=== PATIENT | male | born 1940 | race Caucasian/White ===

== ENCOUNTER 2019-07-07 08:18 | Inpatient (IN) ==
[2019-07-01 11:25] LABS: URINE SOURCE CLEAN CATCH
[2019-07-01 11:44] LABS: BASO# 0.03 X1000 (0.0-0.2); BASO% 0.4 % (0.0-0.8); EOS# 0.14 X1000 (0.0-0.7); EOS% 1.9 % (0.0-10.0); HEMATOCRIT 46.9 % (42.0-52.0); HEMOGLOBIN 15.6 g/dL (14.0-18.0); IMM GRAN# 0.04 X1000 (0.0-0.04); IMM GRAN% 0.5 % (0.0-0.5); LYMPH# 1.25 X1000 (1.2-3.4); LYMPH% 17.1 % (20.5-51.1); MCH 31.7 PG (27-31); MCHC 33.3 g/dL (33-37); MCV 95.3 FL (81-99); MONO# 0.79 X1000 (0.11-0.59); MONO% 10.8 % (1.7-9.3); MPV 10.1 FL (7.4-10.4); NEUT# 5.07 X1000 (1.4-6.5); NEUT% 69.3 % (42.2-75.2); PLT 204 X1000 (130-400); RBC 4.92 XMIL (4.7-6.1); RDW 13.1 % (11.5-14.5); WBC 7.32 X1000 (4.8-10.8)
[2019-07-01 11:48] LABS: BILIRUBIN URINE NEGATIVE (NEGATIVE); BLOOD URINE NEGATIVE (NEGATIVE); COLOR YELLOW; GLUCOSE URINE NEGATIVE (NEGATIVE); INR 0.96; KETONE URINE NEGATIVE (NEGATIVE); LEUKOCYTES URINE NEGATIVE (NEGATIVE); NITRITE URINE NEGATIVE (NEGATIVE); PH URINE 5.5; PROTEIN URINE TRACE mg/dL (NEGATIVE); PROTIME 12.9 Seconds (11.0-16.0); SP GRAVITY URINE 1.018; TURBIDITY URINE CLEAR (CLEAR); UROBILINOGEN URINE NORMAL (NORMAL)
[2019-07-01 11:49] LABS: PTT 33.6 Seconds (22.3-41.8); UR EPITHELIAL CELLS <10 /HPF (<10); URINE BACTERIA NEGATIVE /HPF; URINE RBC <10 /HPF (<10); URINE WBC <10 /HPF (<10)
[2019-07-01 12:47] LABS: ALBUMIN 4.3 g/dL (3.5-5.0); CALCIUM 9.6 mg/dL (8.8-10.2); CREATININE 1.5 mg/dL (0.7-1.2); POTASSIUM 4.5 mmol/L (3.5-5.1)
[2019-07-01 13:19] LABS: HEMOGLOBIN A1C 5.4 % (4.8-6.0)
[~2019-07-07 08:18] MED LIST: DIPRIVAN 1% ONE
[2019-07-07] MEDS ORDERED: DURAMORPH ONE (08:25)
[2019-07-07] MEDS ORDERED: TORADOL ONE (08:25)
[2019-07-07] MEDS ORDERED: CYKLOKAPRON 1,000 MG/NS 1,000 MG/100 ML IVPB ONE (08:25)
[2019-07-07] MEDS ORDERED: MARCAINE 0.25% PF/EPI 1:200,000 ONE (08:25)
[2019-07-07] MEDS ORDERED: SODIUM CHLORIDE 0.9% ONE (08:25)
[2019-07-07] MEDS ORDERED: VANCOMYCIN ONE (08:25)
[2019-07-07] MEDS ORDERED: NEOSPORIN G.U. IRRIGANT ONE (08:25)
[2019-07-07] MEDS ORDERED: EXPAREL 1.3% ONE (08:25)
[2019-07-07] MEDS ORDERED: COLACE ONE (08:30)
[2019-07-07] MEDS ORDERED: REGLAN ONE (08:30)
[2019-07-07] MEDS ORDERED: PEPCID ONE (08:30)
[2019-07-07] MEDS ORDERED: LYRICA ONE (08:30)
[2019-07-07] MEDS ORDERED: LR 1,000 ML ONE (08:31)
[2019-07-07] MEDS ORDERED: CELEBREX ONE (08:31)
[2019-07-07] MEDS ORDERED: KEFZOL 2 GM/D5W 2 GM/50 ML IVPB ONE (08:31)
[2019-07-07] MEDS ORDERED: DIPRIVAN 1% ONE ×2 (08:55→09:48)
[2019-07-07] MEDS ORDERED: DECADRON ONE (09:35)
[2019-07-07] MEDS ORDERED: OFIRMEV 1000 MG/ISOTONIC SOLN 1,000 MG/100 ML BOTTLE ONE (09:35)
[2019-07-07] MEDS ORDERED: XYLOCAINE-MPF 2% ONE (09:35)
[2019-07-07] MEDS ORDERED: FENTANYL ONE (09:35)
[2019-07-07 09:58] LABS: URINE SOURCE CATH
[2019-07-07] MEDS ORDERED: EPHEDRINE ONE (10:02)
[2019-07-07 10:05] LABS: BILIRUBIN URINE NEGATIVE (NEGATIVE); BLOOD URINE NEGATIVE (NEGATIVE); COLOR YELLOW; GLUCOSE URINE NEGATIVE (NEGATIVE); KETONE URINE NEGATIVE (NEGATIVE); LEUKOCYTES URINE NEGATIVE (NEGATIVE); NITRITE URINE NEGATIVE (NEGATIVE); PROTEIN URINE TRACE mg/dL (NEGATIVE); SP GRAVITY URINE 1.017; TURBIDITY URINE CLEAR (CLEAR); UR EPITHELIAL CELLS <10 /HPF (<10); URINE BACTERIA NEGATIVE /HPF; URINE RBC <10 /HPF (<10); URINE WBC <10 /HPF (<10); UROBILINOGEN URINE NORMAL (NORMAL)
[2019-07-07] MEDS ORDERED: NS 1,000 ML ONE (11:37)
[2019-07-07] MEDS: OXY IR ONE ×2 (11:45→12:11)
--- NOTE | 2019-07-07 11:57 | Diag Imaging Result Doc PS360 ---
EXAM: KNEE 1-2 VIEWS-LEFT HISTORY: post op total knee TECHNIQUE: Two views COMPARISON: None. FINDINGS: There has been orthopedic replacement of the hip. There are anterior skin craig and there is a superior surgical drain. No fracture. No dislocation. Severe atherosclerosis. There are stents in the superficial femoral popliteal arteries. IMPRESSION: Good alignment to the femoral and tibial components following orthopedic replacement of the knee. Electronically signed by Ted Kenney 07/07/2019 11:55 AM
[2019-07-07] MEDS ORDERED: MORPHINE IV PRN ×3 (12:00)
[2019-07-07] MEDS ORDERED: ZOFRAN IV PRN (12:00)
[2019-07-07] MEDS ORDERED: OXY IR PO PRN (12:00)
[2019-07-07] MEDS ORDERED: ZOFRAN ODT PO PRN (12:00)
[2019-07-07] MEDS: NS 1,000 ML IV SCH ×2 (12:00→21:51)
--- NOTE | 2019-07-07 13:45 | OPERATIVE NOTE ---
PROCEDURE DATE: 07/07/2019 PREOPERATIVE DIAGNOSIS: Degenerative joint disease, left knee. POSTOPERATIVE DIAGNOSIS: Degenerative joint disease, left knee. PROCEDURE: Left total knee replacement. SURGEON: Babita Fall MD MEAT LUGGER: ISAIAS Pollard ANESTHESIA: Spinal. COMPLICATIONS: None. Note Mr. Wayne was necessary for proper retraction and manipulation during the case. INDICATIONS: 79-year-old male presents for left total knee replacement. Risks, benefits, and no guarantees were discussed and the patient is willing to proceed. PROCEDURE IN DETAIL: The patient was taken to the operating room and satisfactory spinal anesthesia was obtained. The left knee was prepped and draped in the usual sterile fashion. A time-out was taken to confirm operative site, procedure, and patient. The leg was wrapped with an Esmarch and tourniquet inflated to 300 mmHg. A midline incision was made down the front of the knee followed by a quad-tendon sparing arthrotomy. The patella was everted and resurfaced with freehand technique and subluxed laterally. Intramedullary hole was made in the distal femur and the distal femoral cutting block secured in 5 degrees of valgus. Then, 10 mm was taken off the distal femur. The femur was sized to a size 8 DePuy Attune implant. The 4 in 1 block was secured the anterior posterior and chamfer cuts sequentially made. A notch was created for posterior stabilized design using the provided notch guide. Any remaining osteophytes were debrided from the femur. The knee was flexed and a PCL retractor placed behind the tibia to protect the neurovascular bundle. The tibial cutting block was secured and the tibial resection made. Flexion and extension gaps were equal with a 5 mm spacer. The tibia was sized to a size 8 tibial tray. Trial reduction was performed with a 5 mm spacer block with good range of motion and stability. The patella was sized to a 41 medialized dome patella. Drill holes were placed for the patellar implant and femoral implant the trial components removed. The bony surfaces were thoroughly irrigated with pulsatile lavage. Cement with a gram of vancomycin was utilized to cement a size 8 DePuy Attune rotating platform tibial tray a size 8 posterior stabilized left femoral component and a 41 medialized dome patella. While the cement cured, the excess cement was removed with a Horton elevator. The joint capsule was injected with Exparel and a Hemovac drain placed. After curing the cement, a 5 mm size 8 posterior stabilized rotating platform polyethylene bearing was inserted in the tibial tray and the knee reduced. Final range of motion was 0 to 130 degrees with midline patellar tracking. The arthrotomy was copiously irrigated with irrigant and closed over the drain with #1 Vicryl in the arthrotomy, 2-0 Vicryl in the subcutaneous and Prineo skin closure. Sterile dressings completed the closure and the patient was recovered from anesthesia and transferred to the recovery room in stable condition. No intraoperative complications were noted. Instrument count and sponge count was correct at the time of closure. cc: Jose Fall MD
[2019-07-07] MEDS: TYLENOL PO SCH ×3 (14:47→21:51)
[2019-07-07] MEDS: ULTRAM PO SCH ×3 (14:48→21:52)
--- NOTE | 2019-07-07 16:22 | ORTHOPAEDICS PROGRESS NOTE ---
DATE: 07/07/2019 SUBJECTIVE DATA: Mr. Tsai was seen postop day 0 of his left total knee arthroplasty. He reports he is doing well at this time. He states he has been really hungry and already ate two plates of food. He states his pain level is a 3/10. He denies nausea or vomiting. OBJECTIVE DATA: He has good sensation to the left lower extremity. Good pedal pulses. His bandages are clean and dry. He is able to wiggle his toes and hold his leg up without difficulty. Vital Signs have been stable. ASSESSMENT: Degenerative joint disease left knee with left total knee arthroplasty. PLAN: We plan on keeping Ms. Tsai overnight in the hospital. We will keep him a couple of more days, and get him set up for rehab placement. Dictated by ISAIAS Pollard for Jose Fall MD cc: ISAIAS Pollard MD
[2019-07-07] MEDS: OXY IR PO PRN (17:47)
[2019-07-07] MEDS: NON-FORMULARY MED PO SCH (17:47)
[2019-07-07] MEDS: KEFZOL 2 GM/D5W 2 GM/50 ML IVPB IV SCH (17:47)
[2019-07-07] MEDS: PERIDEX MT SCH (21:49)
[2019-07-07] MEDS: COLACE PO SCH (21:51)
[2019-07-07] MEDS: DESYREL PO SCH (21:51)
[2019-07-07] MEDS: REMERON PO SCH (21:51)
[2019-07-07] MEDS: CARDURA PO SCH (21:51)
[2019-07-07] MEDS: CELEBREX PO SCH (21:53)
[2019-07-08] MEDS: KEFZOL 2 GM/D5W 2 GM/50 ML IVPB IV SCH (03:00)
[2019-07-08] MEDS: TYLENOL PO SCH ×4 (03:36→22:11)
[2019-07-08] MEDS: ULTRAM PO SCH ×4 (03:36→22:12)
[2019-07-08] MEDS: NS 1,000 ML IV SCH (05:20)
[2019-07-08] MEDS: OXY IR PO PRN ×2 (07:00→12:52)
[2019-07-08 07:11] LABS: HEMATOCRIT 40.8 % (42.0-52.0); HEMOGLOBIN 13.6 g/dL (14.0-18.0)
[2019-07-08 07:35] LABS: CALCIUM 8.3 mg/dL (8.8-10.2); CREATININE 1.4 mg/dL (0.7-1.2); POTASSIUM 4.6 mmol/L (3.5-5.1)
[2019-07-08] MEDS ORDERED: BLISTEX MEDICATED BERRY LIP BALM TOP PRN (07:55)
[2019-07-08] MEDS ORDERED: CELEBREX PO SCH (09:00)
--- NOTE | 2019-07-08 09:11 | ORTHOPAEDICS PROGRESS NOTE ---
DATE: 07/08/2019 Mr. Tsai is seen status post total knee replacement. At the present time, he is afebrile with stable vital signs. Postop hematocrit is 40.8. His postop x-ray showed good alignment of his total knee. Will plan on discontinuing his drains, and mobilizing him today. He will need rehab placement later this week due to multiple medical issues, fall risk, and mild dementia, with balance and coordination problems. Will plan on discharging him later this week to rehab when a bed is available. cc: Jose Fall MD
[2019-07-08] MEDS: CELEBREX PO SCH ×2 (10:07→22:11)
[2019-07-08] MEDS: PERIDEX MT SCH ×2 (10:07→22:10)
[2019-07-08] MEDS: COLACE PO SCH ×2 (10:08→22:10)
[2019-07-08] MEDS: PEPCID PO SCH (10:08)
[2019-07-08] MEDS: ASPIRIN PO SCH (10:08)
[2019-07-08] MEDS: VITAMIN B-12 PO SCH (10:08)
[2019-07-08] MEDS: CRESTOR PO SCH (10:09)
[2019-07-08] MEDS: NORVASC PO SCH (10:09)
[2019-07-08] MEDS: ARICEPT PO SCH (10:09)
[2019-07-08] MEDS: VITAMIN D PO SCH (10:09)
[2019-07-08] MEDS: NON-FORMULARY MED PO SCH ×3 (10:27→18:28)
--- NOTE | 2019-07-08 12:57 | Diag Imaging Result Doc PS360 ---
EXAM: CHEST-1 VIEW HISTORY: REHAB TECHNIQUE: Single view COMPARISON: 02/15/2018 FINDINGS: The lungs are well expanded. The heart is not enlarged. The vessels are not distended. There are no infiltrates. No effusion identified. IMPRESSION: Negative exam. Electronically signed by Ted Kenney 07/08/2019 12:55 PM
[2019-07-08] MEDS: CARDURA PO SCH (22:11)
[2019-07-08] MEDS: REMERON PO SCH (22:11)
[2019-07-08] MEDS: DESYREL PO SCH (22:11)
[2019-07-09] MEDS: ULTRAM PO SCH ×4 (04:08→21:23)
[2019-07-09] MEDS: TYLENOL PO SCH ×4 (04:08→21:23)
[2019-07-09 07:08] LABS: HEMATOCRIT 37.5 % (42.0-52.0); HEMOGLOBIN 12.7 g/dL (14.0-18.0)
[2019-07-09] MEDS: PERIDEX MT SCH ×2 (09:00→21:23)
[2019-07-09] MEDS: NON-FORMULARY MED PO SCH ×3 (09:00→18:24)
[2019-07-09] MEDS: ASPIRIN PO SCH (09:00)
[2019-07-09] MEDS: ARICEPT PO SCH (09:01)
[2019-07-09] MEDS: COLACE PO SCH ×2 (09:01→21:22)
[2019-07-09] MEDS: PEPCID PO SCH (09:02)
[2019-07-09] MEDS: VITAMIN D PO SCH (09:02)
[2019-07-09] MEDS: CELEBREX PO SCH ×2 (09:02→21:23)
[2019-07-09] MEDS: CRESTOR PO SCH (09:03)
[2019-07-09] MEDS: VITAMIN B-12 PO SCH (09:03)
[2019-07-09] MEDS: NORVASC PO SCH (09:03)
--- NOTE | 2019-07-09 09:55 | ORTHOPAEDICS PROGRESS NOTE ---
DATE: 07/09/2019 SUBJECTIVE DATA: Mr. Tsai is seen postop day 2 of his left total knee arthroplasty. He reports he is doing well. He states his pain is about a 3/10 at this time. He denies nausea or vomiting. OBJECTIVE DATA: Extremities: There is good sensation of the left lower extremity. His bandages are clean and dry. There is negative Homans sign. He can bend his right knee without difficulty. There are good pedal pulses. There is good sensation. Vital Signs: Have been stable. ASSESSMENT: Degenerative joint disease, left knee, with left total knee arthroplasty. PLAN: Plan to keep Mr. Tsai one more night. We will get him discharged tomorrow to rehab. He will then need to follow up in clinic when he gets out and have his craig removed in roughly 10 days. Dictated by ISAIAS Pollard for Jose Fall MD cc: ISAIAS Pollard MD
[2019-07-09] MEDS: DESYREL PO SCH (21:22)
[2019-07-09] MEDS: CARDURA PO SCH (21:22)
[2019-07-09] MEDS: REMERON PO SCH (21:22)
[2019-07-10] MEDS: TYLENOL PO SCH ×2 (04:00→09:38)
[2019-07-10] MEDS: ULTRAM PO SCH ×2 (04:00→09:40)
[2019-07-10 07:28] LABS: HEMATOCRIT 39.9 % (42.0-52.0); HEMOGLOBIN 13.3 g/dL (14.0-18.0)
--- NOTE | 2019-07-10 08:44 | DISCHARGE SUMMARY ---
ADMISSION DATE: 07/07/2019 DISCHARGE DATE: 07/10/2019 ADMISSION DIAGNOSIS: Degenerative joint disease of the left knee. DISCHARGE DIAGNOSIS: Degenerative joint disease of the left knee. PRINCIPLE PROCEDURE: Left total knee arthroplasty. PAST MEDICAL HISTORY: Includes CAD, carotid stenosis, anemia, dementia, high blood pressure. ALLERGIES: There are no known drug allergies. HOSPITAL COURSE: The patient was taken to the operating room on 07/07/2019, where a left total knee arthroplasty was performed. He tolerated the procedure well. He was transferred to the recovery room and did well. He was then brought to the surgical floor where mechanical and chemical DVT prophylaxis were initiated. Routine postop antibiotics were administered. He did well with physical therapy. The patient walked around the nursing station with assistance from physical therapy. He was able to spontaneously void. He transitioned to oral pain medication. His incision remained clean, dry, and intact during the hospital course. There has been no pain with calf squeeze. He has good sensation. There are good pedal pulses. He was felt ready to be discharged on 07/10/2019. DISPOSITION: He will be discharged to rehab. FOLLOWUP: He is to follow up with Dr. Fall when he gets out of rehab. DISCHARGE INSTRUCTIONS: To be discharged to inpatient rehab. He will follow their procedures and protocols. He will be discharged with prescriptions for aspirin for DVT prophylaxis as well as doxycycline for infection prevention. Also given a Percocet 10 for pain. Dictated by ISAIAS Pollard for Jose Fall MD cc: ISAIAS Pollard MD
[2019-07-10] MEDS: PERIDEX MT SCH (09:35)
[2019-07-10] MEDS: NORVASC PO SCH (09:36)
[2019-07-10] MEDS: VITAMIN B-12 PO SCH (09:37)
[2019-07-10] MEDS: CRESTOR PO SCH (09:38)
[2019-07-10] MEDS: PEPCID PO SCH (09:38)
[2019-07-10] MEDS: CELEBREX PO SCH (09:39)
[2019-07-10] MEDS: COLACE PO SCH (09:39)
[2019-07-10] MEDS: ARICEPT PO SCH (09:40)
[2019-07-10] MEDS: NON-FORMULARY MED PO SCH (09:40)
[2019-07-10] MEDS: ASPIRIN PO SCH (09:40)
[2019-07-10] MEDS: VITAMIN D PO SCH (09:40)
[2019-07-10 12:22] VITALS: BP 154/85
== END 2019-07-10 12:24 | DRG 470 ==
LOC: SURHOLD 08:18 → 4N 09:17 → EDSTATUS 09:30
PROVIDERS: ADMIT Orthopaedic Surgery Adult Reconstructive Orthopaedic Surgery; ATTEND Orthopaedic Surgery Adult Reconstructive Orthopaedic Surgery